=== PATIENT | female | born 1990 | race Caucasian/White ===

== ENCOUNTER 2016-11-06 12:16 | Emergency (ER) | payer BC ==
[2016-11-06 12:28] VITALS: BP 116/75
--- NOTE | 2016-11-06 12:45 | UC ---
Throat Pain/Nasal Bradford HPI - HPI Summary HPI Summary: COUGH X 5 DAYS + FEVER, CHILLS, SORE THROAT - History of Current Complaint Chief Complaint: UCGeneralIllness Stated Complaint: FEVER/CHILLS/COUGH Time Seen by Provider: 11/06/16 12:32 Hx Obtained From: Patient Hx Last Menstrual Period: 10/26/16 Onset/Duration: Gradual Onset, Lasting Days - 5, Still Present Severity: Moderate Cough: Nonproductive Associated Signs & Symptoms: Positive: Fever. Negative: Sinus Discomfort, Nasal Discharge, Rash - Allergies/Home Medications Allergies/Adverse Reactions: Allergies Allergy/AdvReac Type Severity Reaction Status Date / Time No Known Allergies Allergy Verified 11/06/16 12:28 Home Medications: Home Medications Nexplanon 11/06/16 [History] PMH/Surg Hx/FS Hx/Imm Hx Cardiovascular History Of: Denies: Hypertension - Surgical History Surgical History: Yes Surgery Procedure, Year, and Place: wisdom teeth - Family History Known Family History: Positive: None Negative: Diabetes - Social History Alcohol Use: Occasionally Substance Use Type: None Smoking Status (MU): Never Smoked Tobacco - Immunization History Most Recent Influenza Vaccination: 2015 Most Recent Tetanus Shot: not UTD Review of Systems Constitutional: Fever, Chills, Fatigue Skin: Negative Eyes: Negative ENT: Sore Throat, Nasal Discharge Respiratory: Cough Cardiovascular: Negative Gastrointestinal: Negative Genitourinary: Negative All Other Systems Reviewed And Are Negative: Yes Physical Exam Triage Information Reviewed: Yes Appearance: Well-Appearing, No Pain Distress, Well-Nourished Vital Signs: Initial Vital Signs Temp 100.5 F 11/06/16 12:23 Pulse 110 11/06/16 12:23 Resp 16 11/06/16 12:23 BP 116/75 11/06/16 12:23 Pulse Ox 100 11/06/16 12:23 Vital Signs Reviewed: Yes Eye Exam: Normal Eyes: Positive: Conjunctiva Clear ENT: Positive: Normal ENT inspection, Hearing grossly normal, Pharyngeal erythema, Nasal congestion, Nasal drainage, TMs normal Neck exam: Normal Neck: Positive: Supple, Nontender, No Lymphadenopathy Respiratory Exam: Normal Respiratory: Positive: Chest non-tender, Lungs clear, Normal breath sounds Cardiovascular: Positive: Tachycardia Abdominal Exam: Normal Abdomen Description: Positive: Nontender, Soft Bowel Sounds: Positive: Present Throat Pain/Nasal Course/Dx - Differential Dx/Diagnosis Provider Diagnoses: INFLUENZA Discharge - Discharge Plan Condition: Stable Disposition: HOME Patient Education Materials: Influenza (ED) Forms: *Work Release Referrals: Idania Vega [Primary Care Provider] - If Needed
== END 2016-11-06 12:49 | disposition home or self-care (01) ==
LOC: UCCORT 12:16
DX: J11.1 Influenza due to unidentified influenza virus with other respiratory manifestations (principal); R00.0 Tachycardia, unspecified
CPT/HCPCS: 99211; G0463

== ENCOUNTER 2019-01-16 14:15 | Emergency (ER) | payer BC ==
--- NOTE | 2019-01-16 15:01 | UC ---
Throat Pain/Nasal Bradford HPI - HPI Summary HPI Summary: 28 yo female presents with fever. She tells me that 1 week ago she developed fatigue, body aches, and a fever of around 100F. Over the next few days has had intermittent headaches, sore throat, and dry cough with Tmax 101F that resolves with ibuprofen. She denies sinus symptoms, dizziness, SOB, chest pain, abdominal pain, n/v/d/c, dysuria. - History of Current Complaint Stated Complaint: FEVER SORE THROAT Time Seen by Provider: 01/16/19 15:01 Hx Obtained From: Patient Hx Last Menstrual Period: 10/26/16 Onset/Duration: Gradual Onset Severity: Moderate Pain Intensity: 5 Pain Scale Used: 0-10 Numeric Cough: Nonproductive - Allergies/Home Medications Allergies/Adverse Reactions: Allergies Allergy/AdvReac Type Severity Reaction Status Date / Time No Known Allergies Allergy Verified 12/09/17 13:11 Home Medications: Home Medications Albuterol HFA INHALER* [Ventolin HFA Inhaler*] 2 puff PO Q4H PRN 01/16/19 [ History Confirmed 01/16/19] clonazePAM [Clonazepam] 0.5 mg PO Q6H PRN 01/16/19 [History Confirmed 01/16/19] PMH/Surg Hx/FS Hx/Imm Hx - Additional Past Medical History Additional PMH: None - Surgical History Surgical History: Yes Surgery Procedure, Year, and Place: wisdom teeth - Family History Known Family History: Positive: None Negative: Diabetes - Social History Occupation: Employed Part-time, Student Lives: With Family Alcohol Use: Occasionally Substance Use Type: None Smoking Status (MU): Never Smoked Tobacco - Immunization History Most Recent Influenza Vaccination: 2016 season Most Recent Tetanus Shot: not UTD Review of Systems All Other Systems Reviewed And Are Negative: Yes Constitutional: Positive: Fever, Fatigue, Other - Body aches Skin: Positive: Negative Eyes: Positive: Negative ENT: Positive: Sore Throat Respiratory: Positive: Negative Cardiovascular: Positive: Negative Gastrointestinal: Positive: Negative Musculoskeletal: Positive: Negative Neurological: Positive: Headache Psychological: Positive: Negative Physical Exam - Summary Physical Exam Summary: GENERAL: NAD. WDWN. No pain distress. SKIN: No rashes, sores, lesions, or open wounds. HEENT: Head: AT/NC Eyes: EOM intact. Conjunctiva clear without inflammation or discharge. Ears: Hearing grossly normal. TMs intact, no bulging, erythema, or edema. Nose: Nasal mucosa pink and moist. NTTP maxillary and frontal sinus. Throat: Posterior oropharynx without exudates, erythema, or tonsillar enlargement. Uvula midline. NECK: Supple. Nontender. No lymphadenopathy. CHEST: CTAB. No r/r/w. No accessory muscle use. Breathing comfortably and in no distress. CV: RRR. Without m/r/g. Pulses intact. Cap refill <2seconds NEURO: Alert. PSYCH: Age appropriate behavior. Triage Information Reviewed: Yes Vital Signs: Vital Signs: Temp Pulse Resp BP Pulse Ox 100.2 F 115 29 133/91 100 01/16/19 15:07 01/16/19 15:07 01/16/19 15:07 01/16/19 15:07 01/16/19 15:07 Laboratory Tests 01/16/19 01/16/19 01/16/19 15:31 15:32 15:56 POC Urine Color Light yellow POC Urine Clarity Clear POC Urine pH 6.5 POC Ur Specif [place] 1.010 POC Urine Protein Negative POC Ur Glucose (UA) Negative POC Urine Ketones Negative POC Urine Blood Negative POC Urine Nitrite Negative POC Urine Bilirubin Negative POC Urine Urobilinogen 0.2 POC U Leukocyte Esteras Negative Influenza A (Rapid) Negative Influenza B (Rapid) Negative Group A Strep Rapid Negative Vital Signs Reviewed: Yes Throat Pain/Nasal Course/Dx - Course Course Of Treatment: CXR: IMPRESSION: #. Elevated lung volumes may reflect obstructive lung disease or simply exuberant inspiratory effort for examination. #. No evidence for pneumonia. No evidence for acute intrathoracic disease. POC strep, flu, and UA negative. Given prolonged symptoms with fever will start on zpak and draw labs for CBC, CMP, and mono. Advised pt to continue drinking fluids and taking tylenol/ ibuprofen for discomfort. - Differential Dx/Diagnosis Provider Diagnosis: Fever, Cough Discharge - Sign-Out/Discharge Documenting (check all that apply): Patient Departure All imaging exams completed and their final reports reviewed: No Studies - Discharge Plan Condition: Stable Disposition: HOME Prescriptions: Azithromycin TAB* [Zithromax TAB (Z-LEANNE) 250 mg #6 tabs] 2 tab PO .TODAY, THEN 1 DAILY #1 leanne Azithromycin TAB* [Zithromax TAB (Z-LEANNE) 250 mg #6 tabs] 2 tab PO .TODAY, THEN 1 DAILY #1 leanne Patient Education Materials: Fever in Adults (ED) Referrals: Sera Sahu NP [Primary Care Provider] - Additional Instructions: If you develop a fever, shortness of breath, chest pain, new or worsening symptoms - please call your PCP or go to the ED immediately. Continue taking tylenol/ibuprofen as directed for your fever and discomfort. All of your testing and exam was normal today. We have drawn labwork to further evaluate your fever and symptoms. - Billing Disposition and Condition Condition: STABLE Disposition: Home - Attestation Statements Provider Attestation: I was available for consult. This patient was seen by the EDWIN. The patient was not presented to, seen by, or examined by me. -Anderson
[2019-01-16 15:12] VITALS: BP 133/91
[2019-01-16 15:43] LABS: Influenza A Molecular NEGATIVE (Negative); Influenza B Molecular NEGATIVE (Negative)
[2019-01-17 14:09] LABS: ABS Eosinophils 0.1 10^3/ul (0-0.6); ABS Lymphocytes 1.4 10^3/ul (1.0-4.8); ABS Monocytes 0.8 10^3/ul (0-0.8); ABS Neutrophils 2.9 10^3/ul (1.5-7.7); Eosinophil % 2.6 %; Hematocrit 37 % (35-47); Hemoglobin 12.6 g/dL (12.0-16.0); Lymphocyte % 26.1 %; Mean Corpuscular HGB Conc 34 g/dL (31-36); Mean Corpuscular Hemoglobin 31 pg (27-31); Mean Corpuscular Volume 92 fL (80-97); Mean Platelet Volume 9.1 fL (7.4-10.4); Nucleated Red Blood Cells % 0.1; Platelet Count 308 10^3/uL (150-450); Red Blood Count 4.03 10^6 /uL (3.70-4.87); Red Cell Distribution Width 13 % (10.5-15); White Blood Count 5.2 10^3/uL (3.5-10.8)
[2019-01-17 14:34] LABS: Albumin 3.9 g/dL (3.2-5.2); Albumin/Globulin Ratio 1.3 (1-3); BUN/Creatinine Ratio 9.3 (8-20); Calcium 9.2 mg/dL (8.6-10.3); EGFR African American 162.7 (>60); EGFR Non-African American 134.4 (>60); Globulin 2.9 g/dL (2-4); Potassium 3.9 mmol/L (3.5-5.0); Total Bilirubin 0.3 mg/dL (0.2-1.0); Total Protein 6.8 g/dL (6.4-8.9)
[2019-01-19 16:25] LABS: EBV Capsid Ag IgG Ab Positive (Negative); EBV Capsid Ag IgM Ab Negative (Negative); Epstein-Barr Nuclear Antigen Positive (Negative)
--- NOTE | 2019-01-20 08:17 | UC ---
- Progress Note Progress Note: Laboratory results come back from January 16, 2019. Monospot and IgM are both negative. CBC CMP are normal. The EBV IgG is positive indicating up prior infection of mononucleosis which is not acute. With the negative Monospot and IgM it does not mean for sure that the patient does not have mononucleosis at this time therefore the patient continues to have symptoms she needs to get reevaluated. Nursing to call patient and inform the patient of the results. Course/Dx - Diagnoses Provider Diagnoses: Fever, Cough Discharge - Sign-Out/Discharge Documenting (check all that apply): Patient Departure All imaging exams completed and their final reports reviewed: No Studies - Discharge Plan Condition: Stable Disposition: HOME Prescriptions: Azithromycin TAB* [Zithromax TAB (Z-LEANNE) 250 mg #6 tabs] 2 tab PO .TODAY, THEN 1 DAILY #1 leanne Azithromycin TAB* [Zithromax TAB (Z-LEANNE) 250 mg #6 tabs] 2 tab PO .TODAY, THEN 1 DAILY #1 leanne Patient Education Materials: Fever in Adults (ED) Referrals: Sera Sahu NP [Primary Care Provider] - Additional Instructions: If you develop a fever, shortness of breath, chest pain, new or worsening symptoms - please call your PCP or go to the ED immediately. Continue taking tylenol/ibuprofen as directed for your fever and discomfort. All of your testing and exam was normal today. We have drawn labwork to further evaluate your fever and symptoms. - Billing Disposition and Condition Condition: STABLE Disposition: Home
== END 2019-01-16 16:22 | disposition home or self-care (01) ==
LOC: UCEAST 14:15
DX: R50.9 Fever, unspecified (principal); R05 Cough; R53.83 Other fatigue; R51 Headache; R52 Pain, unspecified; J02.9 Acute pharyngitis, unspecified
CPT/HCPCS: 36415; 71046; 80053; 81003; 85025; 86308; 86664; 86665; 87651; 99212; G0463

== ENCOUNTER 2019-04-05 07:23 | Emergency (ER) | payer BC, OTHER ==
[2019-04-05 07:55] VITALS: BP 139/90
--- NOTE | 2019-04-05 08:18 | UC ---
General HPI - HPI Summary HPI Summary: RN notes - Sore t roat for 3 days bilat ear pain. Pt also c/o cardiac sx for a few weeks. Pleasant 28 yo female c/o last 6+ weeks heart racing episodes and feeling unwell. Started antidepressant last month, but didn't change symptoms. EKG by pcp a couple weeks ago - "pvc's". But insurance has changed, and is now waiting for appt with new pcp next week. However, last 3 days, sx have been progressively worse, with hr increasing to 150's, and decreasing only to 90's at night (usually 62). Had episode of chest pain a couple days ago. Today has sore throat, but doesn't think this is primary etiology for heart racing sx. No rash. + hx mononucleosis in high school. No sob. No GI / issues, currently on period. - History of Current Complaint Chief Complaint: UCGeneralIllness Stated Complaint: SORE THROAT Time Seen by Provider: 04/05/19 08:09 Hx Obtained From: Patient Hx Last Menstrual Period: 04/02/19 Pain Intensity: 0 - Allergy/Home Medications Allergies/Adverse Reactions: Allergies Allergy/AdvReac Type Severity Reaction Status Date / Time No Known Allergies Allergy Verified 04/05/19 07:48 Home Medications: Home Medications Multivit-Min/Iron/Folic Acid/K [Multi For Her Softgel] 1 each PO DAILY 04/05/19 [History Confirmed 04/05/19] Sertraline* [Zoloft*] 50 mg PO BEDTIME 04/05/19 [History Confirmed 04/05/19] PMH/Surg Hx/FS Hx/Imm Hx Previously Healthy: Yes - Surgical History Surgical History: Yes Surgery Procedure, Year, and Place: wisdom teeth - Family History Known Family History: Positive: None, Diabetes - Social History Alcohol Use: Occasionally Substance Use Type: None Substance Use Comment - Amount & Last Used: CBD oil - yesterday Smoking Status (MU): Never Smoked Tobacco When Did the Patient Quit Smoking/Using Tobacco: 2017 - Immunization History Most Recent Influenza Vaccination: 2016 season Most Recent Tetanus Shot: not UTD Review of Systems All Other Systems Reviewed And Are Negative: Yes Constitutional: Positive: Other - see hpi Skin: Positive: Other - see hpi Eyes: Positive: Other - see hpi ENT: Positive: Other - see hpi Respiratory: Positive: Other - see hpi Cardiovascular: Positive: Other - see hpi Gastrointestinal: Positive: Other - see hpi Motor: Positive: Other - see hpi Neurovascular: Positive: Other - see hpi Musculoskeletal: Positive: Other: - see hpi Neurological: Positive: Other - see hpi Psychological: Positive: Other - see hpi Is Patient Immunocompromised?: No Physical Exam Triage Information Reviewed: Yes Appearance: Well-Nourished - sitting up, conversing easily and appropriately. nad. looks tired, but nontoxic general appearance. Vital Signs: Initial Vital Signs Temp 98.6 F 04/05/19 07:50 Pulse 120 04/05/19 07:50 Resp 18 04/05/19 07:50 BP 139/90 04/05/19 07:50 Pulse Ox 100 04/05/19 07:50 Vital Signs Reviewed: Yes Eye Exam: Normal - perrla, eomi. sw / cp. fundi nondilated grossly benign. ENT: Positive: Pharyngeal erythema - post pharynx redness, no exudute. Uvula midline., TM dull - Left TM dull, rtx'd. EACs nad Neck exam: Normal Neck: Positive: Supple, Nontender, Enlarged Nodes @ - R ant neck + adenop Respiratory Exam: Normal Respiratory: Positive: Chest non-tender, Lungs clear, Normal breath sounds, No respiratory distress, No accessory muscle use Cardiovascular Exam: Other - HR 120's at exam, correlates with R radial pulse Abdominal Exam: Normal Abdomen Description: Positive: Nontender Musculoskeletal Exam: Normal - moves x 4 exts gait steady Neurological Exam: Normal - grossly nonfocal Psychological Exam: Normal - conversing easily and appropriately. nad. Skin Exam: Normal - no visible or reported rash. nondiaphoretic. Course/Dx - Course Course Of Treatment: EKG - no old avail for comp - ST at 117 bpm. W[place] 136, Qtc 459 Reviewed cxr from 12/2018. NAd (inc inflation) D/w pt coa /tx plan. Encourage ED evaluation / tx. Encourage f/u new pcp as planned. EMS offered, but she declines. Will drive pov. Questions as posed answered to the best of my ability. note - considered asa prior to transfer but hold off d/t pain a couple days ago , and consider other etiology - Diagnoses Provider Diagnosis: Palpitations Discharge - Sign-Out/Discharge Documenting (check all that apply): Patient Departure All imaging exams completed and their final reports reviewed: No Studies - Discharge Plan Condition: Guarded Disposition: HOME-RECOMMEND TO ED Patient Education Materials: Chest Pain (ED), Heart Palpitations (ED) Referrals: No Primary Care Phys,NOPCP [Primary Care Provider] - Additional Instructions: Please go to the Emergency Department. Stop and call 911 for problems en route. - Billing Disposition and Condition Condition: GUARDED Disposition: Home-Recommend to ED
== END 2019-04-05 09:20 | disposition home health service (06) ==
LOC: UCEAST 07:23
DX: R00.2 Palpitations (principal); J02.9 Acute pharyngitis, unspecified
CPT/HCPCS: 81025; 87651; 93005; 99211; G0463

== ENCOUNTER 2019-04-05 09:40 | Emergency (ER) | payer OTHER ==
[2019-04-05 10:07] LABS: ABS Lymphocytes 0.9 10^3/ul (1.0-4.8); ABS Monocytes 0.8 10^3/ul (0-0.8); ABS Neutrophils 7.4 10^3/ul (1.5-7.7); Eosinophil % 0.4 %; Hematocrit 38 % (35-47); Lymphocyte % 10.2 %; Mean Corpuscular HGB Conc 35 g/dL (31-36); Mean Corpuscular Hemoglobin 31 pg (27-31); Mean Corpuscular Volume 91 fL (80-97); Mean Platelet Volume 8.1 fL (7.4-10.4); Platelet Count 283 10^3/uL (150-450); Red Blood Count 4.15 10^6 /uL (3.70-4.87); Red Cell Distribution Width 13 % (10-15); White Blood Count 9.2 10^3/uL (3.5-10.8)
[2019-04-05 10:22] LABS: INR 1.03 (0.82-1.09)
[2019-04-05 10:29] LABS: Albumin 4.2 g/dL (3.2-5.2); Albumin/Globulin Ratio 1.4 (1-3); Calcium 9.6 mg/dL (8.6-10.3); EGFR African American 177.8 (>60); EGFR Non-African American 146.9 (>60); Globulin 3.1 g/dL (2-4); Potassium 3.8 mmol/L (3.5-5.0); Total Bilirubin 0.4 mg/dL (0.2-1.0); Total Protein 7.3 g/dL (6.4-8.9)
--- NOTE | 2019-04-05 11:35 | ED ---
Palpitations / Dysrhythmia - HPI Summary HPI Summary: 28 year old female presents with palpitations for the past couple months. She states the palpitations are intermittent. They're worse at night. Does not change with activity. She states she gets occasional chest pain and shortness of breath. She denies any bowel pain. No nausea vomiting. She states that she was recently sick with a sore throat. She denies any family history of palpitations or blood clots. She denies any drug use. She denies any sweating or weight loss. Was recently started on Zoloft 5 weeks ago with some improvement of feeling with palpitations but the palpitations have not resolved. She had palpitations prior to starting Zoloft. also has had sinus congestion for past 3 days. no fever. admits to sore throat and ear pressure. had neg strept at urgent care. - History of Current Complaint Chief Complaint: EDChestPainROMI Time Seen by Provider: 04/05/19 11:19 - Allergy/Home Medications Allergies/Adverse Reactions: Allergies Allergy/AdvReac Type Severity Reaction Status Date / Time No Known Allergies Allergy Verified 04/05/19 07:48 Home Medications: Home Medications Albuterol inh POWDER (NF) [Proair Respiclick] 2 puff INH Q4HR PRN 04/05/19 [ History Confirmed 04/05/19] PMH/Surg Hx/FS Hx/Imm Hx Endocrine/Hematology History: Denies: Hx Diabetes Cardiovascular History: Denies: Hx Hypertension, Hx Pacemaker/ICD Respiratory History: Reports: Hx Asthma - exercise induced History: Denies: Hx Renal Disease Sensory History: Denies: Hx Hearing Aid Psychiatric History: Denies: Hx Panic Disorder - Surgical History Surgery Procedure, Year, and Place: wisdom teeth Infectious Disease History: No Infectious Disease History: Denies: History Other Infectious Disease, Traveled Outside the [place] in Last 30 Days - Family History Known Family History: Positive: None Negative: Diabetes - Social History Alcohol Use: Occasionally Substance Use Type: Reports: None Substance Use Comment - Amount & Last Used: CBD oil - yesterday Hx Tobacco Use: No Smoking Status (MU): Never Smoked Tobacco Review of Systems Negative: Fever Positive: Sore Throat Positive: Palpitations, Chest Pain Positive: Shortness Of Breath. Negative: Cough All Other Systems Reviewed And Are Negative: Yes Physical Exam Triage Information Reviewed: Yes Vital Signs On Initial Exam: Initial Vitals Temp Pulse Resp BP Pulse Ox 98.7 F 112 20 152/86 100 04/05/19 09:46 04/05/19 09:46 04/05/19 09:46 04/05/19 09:46 04/05/19 09:46 Vital Signs Reviewed: Yes Appearance: Positive: Well-Appearing Skin: Positive: Warm, Dry Head/Face: Positive: Normal Head/Face Inspection Eyes: Positive: Normal, EOMI, ALLYSSA, Conjunctiva Clear ENT: Positive: Normal ENT inspection, Pharynx normal, TMs normal. Negative: Sinus tenderness Respiratory/Lung Sounds: Positive: Clear to Auscultation, Breath Sounds Present Cardiovascular: Positive: Tachycardia Abdomen Description: Positive: Nontender, Soft Bowel Sounds: Positive: Present Musculoskeletal: Positive: Normal Neurological: Positive: Normal Psychiatric: Positive: Normal Diagnostics - Vital Signs Vital Signs Temp Pulse Resp BP Pulse Ox 04/05/19 09:46 98.7 F 112 20 152/86 100 - Laboratory Lab Results: Lab Results 04/05/19 04/05/19 04/05/19 Range/Units 09:56 09:56 09:56 WBC 9.2 (3.5-10.8) 10^3/uL RBC 4.15 (3.70-4.87) 10^6 /uL Hgb 13.0 (12.0-16.0) g/dL Hct 38 (35-47) % MCV 91 (80-97) fL MCH 31 (27-31) pg MCHC 35 (31-36) g/dL RDW 13 (10-15) % Plt Count 283 (150-450) 10^3/uL MPV 8.1 (7.4-10.4) fL Neut % (Auto) 80.5 % Lymph % (Auto) 10.2 % [place] % (Auto) 8.7 % Eos % (Auto) 0.4 % Baso % (Auto) 0.2 % Absolute Neuts (auto) 7.4 (1.5-7.7) 10^3/ul Absolute Lymphs (auto) 0.9 L (1.0-4.8) 10^3/ul Absolute Monos (auto) 0.8 (0-0.8) 10^3/ul Absolute Eos (auto) 0.0 (0-0.6) 10^3/ul Absolute Basos (auto) 0.0 (0-0.2) 10^3/ul Absolute Nucleated RBC 0.0 10^3/ul Nucleated RBC % 0.0 INR (Anticoag Therapy) 1.03 (0.82-1.09) D-Dimer, Quantitative (Less Than 230) ng/mL Sodium 139 (135-145) mmol/L Potassium 3.8 (3.5-5.0) mmol/L Chloride 106 (101-111) mmol/L Carbon Dioxide 25 (22-32) mmol/L Anion Gap 8 (2-11) mmol/L BUN 5 L (6-24) mg/dL Creatinine 0.50 L (0.51-0.95) mg/dL Est GFR ( Amer) 177.8 (>60) Est GFR (Non-Af Amer) 146.9 (>60) BUN/Creatinine Ratio 10.0 (8-20) Glucose 106 H (70-100) mg/dL Calcium 9.6 (8.6-10.3) mg/dL Magnesium Pending Total Bilirubin 0.40 (0.2-1.0) mg/dL AST 15 (13-39) U/L ALT 14 (7-52) U/L Alkaline Phosphatase 101 (34-104) U/L Troponin I 0.00 (<0.04) ng/mL Total Protein 7.3 (6.4-8.9) g/dL Albumin 4.2 (3.2-5.2) g/dL Globulin 3.1 (2-4) g/dL Albumin/Globulin Ratio 1.4 (1-3) TSH Pending Thyroxine (T4) Pending Free T3 Pending 04/05/19 Range/Units 09:56 WBC (3.5-10.8) 10^3/uL RBC (3.70-4.87) 10^6 /uL Hgb (12.0-16.0) g/dL Hct (35-47) % MCV (80-97) fL MCH (27-31) pg MCHC (31-36) g/dL RDW (10-15) % Plt Count (150-450) 10^3/uL MPV (7.4-10.4) fL Neut % (Auto) % Lymph % (Auto) % [place] % (Auto) % Eos % (Auto) % Baso % (Auto) % Absolute Neuts (auto) (1.5-7.7) 10^3/ul Absolute Lymphs (auto) (1.0-4.8) 10^3/ul Absolute Monos (auto) (0-0.8) 10^3/ul Absolute Eos (auto) (0-0.6) 10^3/ul Absolute Basos (auto) (0-0.2) 10^3/ul Absolute Nucleated RBC 10^3/ul Nucleated RBC % INR (Anticoag Therapy) (0.82-1.09) D-Dimer, Quantitative < 200 (Less Than 230) ng/mL Sodium (135-145) mmol/L Potassium (3.5-5.0) mmol/L Chloride (101-111) mmol/L Carbon Dioxide (22-32) mmol/L Anion Gap (2-11) mmol/L BUN (6-24) mg/dL Creatinine (0.51-0.95) mg/dL Est GFR ( Amer) (>60) Est GFR (Non-Af Amer) (>60) BUN/Creatinine Ratio (8-20) Glucose (70-100) mg/dL Calcium (8.6-10.3) mg/dL Magnesium Total Bilirubin (0.2-1.0) mg/dL AST (13-39) U/L ALT (7-52) U/L Alkaline Phosphatase (34-104) U/L Troponin I (<0.04) ng/mL Total Protein (6.4-8.9) g/dL Albumin (3.2-5.2) g/dL Globulin (2-4) g/dL Albumin/Globulin Ratio (1-3) TSH Thyroxine (T4) Free T3 Result Diagrams: 04/05/19 09:56 04/05/19 09:56 Lab Statement: Any lab studies that have been ordered have been reviewed, and results considered in the medical decision making process. - EKG No standard instances Cardiac Rate: Tachycardia EKG Rhythm: Sinus Tachycardia EKG Comparison: No Significant Change Summary of EKG Findings: sinus tachycardia Course/Dx - Course Course Of Treatment: 28 year old female presents with palpitations for the past couple months. She states the palpitations are intermittent. They're worse at night. Does not change with activity. She states she gets occasional chest pain and shortness of breath. She denies any bowel pain. No nausea vomiting. She states that she was recently sick with a sore throat. She denies any family history of palpitations or blood clots. She denies any drug use. She denies any sweating or weight loss. Was recently started on Zoloft 5 weeks ago with some improvement of feeling with palpitations but the palpitations have not resolved. She had palpitations prior to starting Zoloft. On exam lungs appears patient. Tachycardia noted. EKG shows sinus tach. wbc normal. Patient is not anemic. electrolytes are normal. Troponin 0. D-dimer negative. tsh zero. t3 elevated. will start on atenlol for hyperthyroidism. will have follow up with primary which has next week appointment for further work up for graves. monospot neg. discussed sore throat and sinus congestion likely viral so will treat supportaively. patient understand and agrees with plan. - Diagnoses Differential Diagnosis/HQI/PQRI: Positive: Panic Disorder, Paroxymal SVT, Other - hyperthyroidism Provider Diagnoses: Hyperthyroidism, Upper respiratory infection, Palpitations Discharge - Sign-Out/Discharge Documenting (check all that apply): Patient Departure Patient Received Moderate/Deep Sedation with Procedure: No - Discharge Plan Condition: Good Disposition: HOME Prescriptions: Atenolol TAB* [Tenormin TAB* 25 MG] 25 mg PO DAILY #14 tab Patient Education Materials: Hyperthyroidism (ED) Referrals: No Primary Care Phys,NOPCP [Primary Care Provider] - Additional Instructions: follow up with primary for additional testing for thyroid start atenlol daily Use saline spray in nose as much as needed Can use OTC intranasal steroid like flonase one spray each nostril twice a day Take Tylenol or ibuprofen for headache every 6 hours Return to ED if develop any new or worsening symptoms - Billing Disposition and Condition Condition: GOOD Disposition: Home - Attestation Statements Provider Attestation: I was available for consult. This patient was seen by the EDWIN. The patient was not presented to, seen by, or examined by me. -Anderson
[2019-04-05 11:55] LABS: Magnesium 1.8 mg/dL (1.9-2.7)
[2019-04-05 11:59] LABS: T4, Total 11.68 mcg/dL (6.09-12.23)
[2019-04-05 12:03] LABS: Free T3 6.3 pg/mL (2.5-3.9)
[2019-04-05] MEDS ORDERED: Atenolol TAB* 25 MG PO ONE (12:22)
[2019-04-05 13:03] VITALS: BP 124/77
== END 2019-04-05 12:56 | disposition home or self-care (01) ==
LOC: ED 09:40
DX: R00.2 Palpitations (principal); E05.90 Thyrotoxicosis, unspecified without thyrotoxic crisis or storm; J06.9 Acute upper respiratory infection, unspecified; R07.9 Chest pain, unspecified
CPT/HCPCS: 36415; 80053; 83735; 84436; 84443; 84481; 84484; 85025; 85379; 85610; 86308; 93005; 99282

== ENCOUNTER 2022-04-06 17:56 | Inpatient (IN) ==
[2022-04-06] MEDS ORDERED: Lactated Ringers 1000 ml BAG 1,000 ML IV ONE (18:18)
[2022-04-06] MEDS ORDERED: Buffered Lidocaine 1% SYRIN 1 ml INTRADERM ONE (18:18)
[2022-04-06] MEDS ORDERED: Lactated Ringers 1000 ml BAG 1,000 ML IV SCH (19:00)
[2022-04-06 19:34] LABS: ABS Lymphocytes 1.3 10^3/ul (1.0-4.8); ABS Neutrophils 12.1 10^3/ul (1.5-7.7); Eosinophil % 0.3 %; Hematocrit 38 % (35-47); Hemoglobin 12.9 g/dL (12.0-16.0); Mean Corpuscular HGB Conc 34 g/dL (31-36); Mean Corpuscular Hemoglobin 32 pg (27-31); Mean Corpuscular Volume 94 fL (80-97); Mean Platelet Volume 9.2 fL (7.4-10.4); Platelet Count 278 10^3/uL (150-450); Red Blood Count 4.02 10^6 /uL (3.70-4.87); Red Cell Distribution Width 13 % (10-15); White Blood Count 14.4 10^3/uL (3.5-10.8)
[2022-04-06] MEDS ORDERED: Penicillin G Potassium IV 5,000,000 UNITS in NS 0.9% 100 ml BAG 100 ML IVPB ONE (19:34)
[2022-04-06 19:53] LABS: Urine Benzodiazepine Screen None Detected (None Detect); Urine Cannabinoids Screen None Detected (None Detect); Urine Opiates Screen None Detected (None Detect)
[2022-04-06 20:02] LABS: Urine Appearance Slightly Cloudy; Urine Bilirubin Negative (Negative); Urine Color Yellow; Urine Glucose Negative (Negative); Urine Ketones Negative (Negative); Urine Specific Gravity <1.005 (1.005-1.030)
[2022-04-06 20:03] LABS: Urine Blood 1+ (Small) (Negative); Urine Nitrite Negative (Negative); Urine Protein Negative (Negative); Urine Urobilinogen 0.2 (Negative) (Negative)
[2022-04-06 20:47] LABS: Urine Bacteria 1+ (Absent); Urine Red Blood Cell 2+(6-10/hpf) (Absent); Urine Squamous Epithelial Cell Present (Absent); Urine White Blood Cell 3+(>20/hpf) (Absent)
[2022-04-07] MEDS: Penicillin G Potassium IV 3,000,000 UNITS in NS 0.9% 100 ml BAG 100 ML IVPB SCH ×6 (00:01→22:53)
[2022-04-07] MEDS ORDERED: OBEPIDURAL (200 ML) 200 ML EPIDURAL ONE (08:04)
[2022-04-07] MEDS ORDERED: Lidocaine 1% w EPI 1:200,000 SDV 30 ML VIAL ONE (08:04)
[2022-04-07] MEDS ORDERED: Phenylephrine 40 mcg/mL 10mL (400mcg) SYRINGE IV PUSH PRN ×2 (09:34)
[2022-04-07] MEDS ORDERED: Lactated Ringers 1000 ml BAG 500 ML IV PRN (09:34)
[2022-04-07] MEDS ORDERED: Sodium Citrate/Citric Acid LIQ 15 ML UDC PO PRN (09:34)
[2022-04-07] MEDS ORDERED: Lactated Ringers 1000 ml BAG 1,000 ML IV ONE (09:34)
[2022-04-07] MEDS ORDERED: OBEPIDURAL (200 ML) 200 ML EPIDURAL SCH (10:00)
[2022-04-07] MEDS ORDERED: Lactated Ringers 1000 ml BAG 1,000 ML IV SCH (10:00)
[2022-04-07] MEDS: Oxytocin in LR 20,000 MILLI.UNIT/1,000 ML BAG IV SCH (23:06)
[2022-04-08] MEDS ORDERED: Witch Hazel PAD JAR TOPICAL PRN (02:53)
[2022-04-08] MEDS ORDERED: Dibucaine 1% OINT 28.35 GM TUBE PR PRN (02:53)
[2022-04-08] MEDS ORDERED: Glycerin ADULT 2.4 gm SUPP PR PRN (02:53)
[2022-04-08] MEDS ORDERED: Methylergonovine 0.2 mg AMPULE 1 ml AMP IM ONE (02:53)
[2022-04-08] MEDS ORDERED: Oxytocin in LR 20,000 MILLI.UNIT/1,000 ML BAG IV SCH (03:00)
[2022-04-08] MEDS: Penicillin G Potassium IV 3,000,000 UNITS in NS 0.9% 100 ml BAG 100 ML IVPB SCH (03:54)
[2022-04-08] MEDS ORDERED: Lidocaine 1% VIAL 10 MG/ML VIAL ONE (05:33)
[2022-04-08] MEDS: Oxytocin in LR 20,000 MILLI.UNIT/1,000 ML BAG IV SCH (05:39)
[2022-04-08 12:12] LABS: ABS Lymphocytes 1.1 10^3/ul (1.0-4.8); ABS Monocytes 0.9 10^3/ul (0-0.8); ABS Neutrophils 12.7 10^3/ul (1.5-7.7); Eosinophil % 0.3 %; Hematocrit 27 % (35-47); Hemoglobin 9.2 g/dL (12.0-16.0); Lymphocyte % 7.5 %; Mean Corpuscular HGB Conc 34 g/dL (31-36); Mean Corpuscular Hemoglobin 32 pg (27-31); Mean Corpuscular Volume 94 fL (80-97); Mean Platelet Volume 9.2 fL (7.4-10.4); Platelet Count 219 10^3/uL (150-450); Red Blood Count 2.88 10^6 /uL (3.70-4.87); Red Cell Distribution Width 13 % (10-15); White Blood Count 14.8 10^3/uL (3.5-10.8)
[2022-04-09 06:24] LABS: ABS Eosinophils 0.2 10^3/ul (0-0.6); ABS Lymphocytes 2.6 10^3/ul (1.0-4.8); ABS Neutrophils 11.1 10^3/ul (1.5-7.7); Eosinophil % 1.5 %; Hematocrit 30 % (35-47); Lymphocyte % 17.4 %; Mean Corpuscular HGB Conc 33 g/dL (31-36); Mean Corpuscular Hemoglobin 32 pg (27-31); Mean Corpuscular Volume 96 fL (80-97); Mean Platelet Volume 8.9 fL (7.4-10.4); Platelet Count 249 10^3/uL (150-450); Red Blood Count 3.14 10^6 /uL (3.70-4.87); Red Cell Distribution Width 13 % (10-15)
[2022-04-10 08:18] VITALS: BP 115/73
== END 2022-04-10 18:40 | disposition home or self-care (01) | DRG 560 ==
LOC: MCHOBOUT 17:56 → MCHOB 18:22
PROVIDERS: ADMIT Midwife; ATTEND Midwife

== ENCOUNTER 2024-02-27 08:16 | Inpatient (IN) ==
[2024-02-27] MEDS ORDERED: Lidocaine 1% VIAL 10 MG/ML 30 ML VIAL INJ PRN (09:37)
[2024-02-27] MEDS ORDERED: Prochlorperazine 5 mg/ml 2 ml VIAL (10 mg) IV PRN (09:37)
[2024-02-27] MEDS: miSOPROStol 100 mcg TAB PO ONE (10:17)
[2024-02-27] MEDS: Lactated Ringers 1000 ml BAG 1,000 ML IV ONE ×2 (10:18→16:25)
[2024-02-27 10:42] LABS: ABS Eosinophils 0.2 10^3/uL (0.0-0.5); ABS Lymphocytes 1.1 10^3/uL (1.0-4.8); ABS Monocytes 0.7 10^3/uL (0.0-0.9); ABS Neutrophils 6.2 10^3/uL (1.5-7.6); ABS Nucleated RBC 0.01 10^3/ul; Eosinophil % 2.6 %; Hematocrit 36.4 % (35-45); Hemoglobin 12.5 g/dL (11.5-14.3); Lymphocyte % 13.4 %; Mean Corpuscular Hemoglobin 32.6 pg (27-33); Mean Corpuscular Hgb Conc 34.4 g/dL (31-36); Mean Corpuscular Volume 94.6 fL (80-97); Mean Platelet Volume 8.5 fL (7.5-11.2); Nucleated Red Blood Cells % 0.1 %/100WBC (0.0-0.8); Platelet Count 321 10^3/uL (150-450); Red Blood Count 3.85 10^6/uL (3.63-4.92); White Blood Count 8.3 10^3/uL (3.8-11.8)
[2024-02-27] MEDS: Penicillin G Potassium IV 5,000,000 UNITS in NS 0.9% 100 ml BAG 100 ML IVPB ONE (10:47)
[2024-02-27 11:01] LABS: Urine Benzodiazepine Screen None Detected (None Detect); Urine Cannabinoids Screen None Detected (None Detect); Urine Opiates Screen Presumptive Positive (None Detect)
[2024-02-27] MEDS: Penicillin G Potassium IV 3,000,000 UNITS in NS 0.9% 100 ml BAG 100 ML IVPB SCH (14:24)
[2024-02-27] MEDS ORDERED: Sodium Citrate/Citric Acid LIQ 15 ML UDC PO PRN (16:53)
[2024-02-27] MEDS ORDERED: fentaNYL 100 mcg/2 ml 50 MCG/ML VIAL ONE (16:58)
[2024-02-27] MEDS ORDERED: Bupivacaine 0.25% SDV PF 10 ML VIAL INJ ONE (16:58)
[2024-02-27] MEDS ORDERED: Lactated Ringers 1000 ml BAG 1,000 ML IV SCH ×3 (17:00→21:00)
[2024-02-27] MEDS: OBEPIDURAL (200 ML) 200 ML EPIDURAL ONE (17:23)
[2024-02-27 19:17] LABS: Urine Appearance Clear; Urine Bilirubin Negative (Negative); Urine Blood Negative (Negative); Urine Color Light-Yellow; Urine Glucose Negative (Negative); Urine Ketones Negative (Negative); Urine Nitrite Negative (Negative); Urine Protein Negative (Negative); Urine Specific Gravity 1.011 (1.002-1.030); Urine Urobilinogen Negative (Negative); Urine pH 7.5 (5.0-8.0)
[2024-02-27] MEDS: Methylergonovine 0.2 mg AMPULE 1 ml AMP IM ONE (19:48)
[2024-02-27] MEDS: Oxytocin in LR 20,000 MILLI.UNIT/1,000 ML BAG IV ONE (19:55)
[2024-02-27] MEDS ORDERED: Glycerin ADULT 2.4 gm SUPP PR PRN (20:26)
[2024-02-27] MEDS: Witch Hazel PAD JAR TOPICAL PRN (22:38)
[2024-02-27] MEDS: Dibucaine 1% OINT 28.35 GM TUBE PR PRN (22:38)
[2024-02-28] MEDS: Methylergonovine 0.2 mg AMPULE 1 ml AMP ONE (00:30)
[2024-02-28] MEDS: Oxytocin in LR 20,000 MILLI.UNIT/1,000 ML BAG IV SCH (00:33)
[2024-02-28] MEDS ORDERED: Phenylephrine 40 mcg/mL 10mL (400mcg) SYRINGE ONE (06:58)
[2024-02-28 07:39] LABS: ABS Eosinophils 0.1 10^3/uL (0.0-0.5); ABS Lymphocytes 1.3 10^3/uL (1.0-4.8); ABS Monocytes 0.8 10^3/uL (0.0-0.9); ABS Neutrophils 8.8 10^3/uL (1.5-7.6); ABS Nucleated RBC 0.01 10^3/ul; Eosinophil % 1.2 %; Hematocrit 32.4 % (35-45); Hemoglobin 11.2 g/dL (11.5-14.3); Lymphocyte % 11.6 %; Mean Corpuscular Hemoglobin 32.7 pg (27-33); Mean Corpuscular Hgb Conc 34.5 g/dL (31-36); Mean Corpuscular Volume 94.9 fL (80-97); Mean Platelet Volume 8.4 fL (7.5-11.2); Platelet Count 293 10^3/uL (150-450); Red Blood Count 3.41 10^6/uL (3.63-4.92); Red Cell Distribution Width 12.8 % (12-17); White Blood Count 11.1 10^3/uL (3.8-11.8)
[2024-02-28 10:37] LABS: TSH Ultra Thyroid Stim Horm 0.62 mcIU/mL (0.34-5.60)
[2024-02-28 10:39] LABS: Free T4 0.82 ng/dL (0.61-1.12)
[2024-02-28] MEDS: Lactated Ringers 1000 ml BAG 1,000 ML IV SCH (11:58)
[2024-02-28] MEDS: Lidocaine 1.5% EPI 1:200,000 30 ML SDV ONE (11:58)
[2024-02-28] MEDS: Buffered Lidocaine 1% SYRIN 1 ml INTRADERM ONE (11:58)
[2024-02-29 08:49] VITALS: BP 107/70
[2024-03-03 12:11] LABS: Codeine Confirmation, Urine 401 ng/mL (Cutoff: 25); Dihydrocodeine Conf, Urine Negative ng/mL (Cutoff: 25); Naloxone Confirm, Urine Negative ng/mL (Cutoff: 25); Norhydrocodone Confirm, Urine Negative ng/mL (Cutoff: 25); Noroxycodone Confirm, Urine Negative ng/mL (Cutoff: 25); Noroxymorphone Confirm, Urine Negative ng/mL (Cutoff: 25); Opiates Interpretation, Urine Positive.; Oxycodone Confirm, Urine Negative ng/mL (Cutoff: 25); Oxymorphone Confirm, Urine Negative ng/mL (Cutoff: 25)
== END 2024-02-29 16:00 | disposition home or self-care (01) | DRG 560 ==
LOC: MCHOBOUT 08:16 → MCHOB 09:05
PROVIDERS: ADMIT Advanced Practice Midwife; ATTEND Advanced Practice Midwife